=== PATIENT | male | born 1980 | race Two or more races ===

== ENCOUNTER 2017-01-11 10:45 | Emergency (ER) | payer MEDICAID ==
[2017-01-11] MEDS ORDERED: IBUPROFEN 800 MG TABLET ONE (11:08)
--- NOTE | 2017-01-11 11:29 | RAD ---
Exam: Two-view chest COMPARISON: None INDICATION: Left-sided back pain, no known injury. FINDINGS: PA and lateral views of the chest were obtained. Lung volumes are low on the frontal view. Cardiac silhouette is within normal limits given technique. There is no focal airspace disease or pleural effusion. Bones of the chest wall within normal limits. IMPRESSION: Negative two-view chest.
--- NOTE | 2017-01-11 11:30 | RAD ---
Exam: Two-view thoracolumbar spine COMPARISON: None INDICATION: Left-sided back pain. Finding: AP and lateral views of the thoracolumbar spine were obtained. There is visualization from T9 through S1 on both views. There are 5 nonrib-bearing lumbar vertebra. There is anatomic sagittal alignment. Minor anterior vertebral body spurring is seen at L3-4 and L4-5. Overall vertebral body height and disc spaces maintained. Visualized ribs are unremarkable. IMPRESSION: No findings identified to explain left-sided back pain. Minor degenerative disc disease L3-4 and L4-5.
== END 2017-01-11 11:41 | disposition home or self-care (01) ==
LOC: ED 10:45
DX: M54.6 Pain in thoracic spine (principal); M25.511 Pain in right shoulder; R53.81 Other malaise
CPT/HCPCS: 71020; 72080; 99283 ×2; A9270